=== PATIENT | male | born 1970 | race Caucasian/White ===

== ENCOUNTER → 2016-08-05 | Outpatient (CLI) | payer MEDICARE ==
[~2016-08-05] MED LIST: ALPR1TAB2 PO; ARIP2TAB PO; CLON0.2T PO; MORP60TA37 PO; OXYC-250 PO
--- NOTE | 2016-08-05 16:18 | CARD ---
APPROVED REPORT INDICATION Chest Pain RISK FACTORS Smoking PROCEDURE The patient underwent an Exercise Stress Test using the Logan Protocol. Blood pressure, heart rate, a nd EKG were monitored. An Echocardiogram was performed by robotic maintenance technician in four stages in quad fashion. At peak stress four se lected images were obtained and placed side by side with resting images for comparison. STRESS ECHO FINDINGS The resting Echocardiogram showed normal left ventricular contractility with an estimated Ejection Fr action of about 60 %. Normal augmentation of myocardial wall segments using a 16 segment model. Test Type: Exercise Stress Nurse/Tech: Elza Abdi RN/ Royce Mike RDCS, RVT, RDMS Test Indications: Chest pain Cardiac History and Allergies: NONE STATED Medications: NONE STATED Medical History: NO DIABETES, RECENTLY QUIT SMOKING Resting ECG: SR Resting Heart Rate: 85 bpm Resting Blood Pressure: 128/68mmHg Pretest Chest Pain: None Nurse/Tech Notes NO RESPIRATORY DISTRESS, NO CHEST DISCOMFORT AT THIS TIME. PT WAS ABLE TO WALK AND THEN END THE STUD Y IN A JOG. Consent: The procedure was explained to the patient in lay terms. Informed consent was witnessed. Zaid chang was entered into [employer]. History and Stress Test performed by JONEL POLANCO Stress Symptoms LEG FATIGUE. POST EXERCISE Reason for Termination: Reached target heart rate Target HR: 148 Max HR: 159 bpm Exercise duration: 9 min:sec, 3 Stage Exercise capacity: 10.0METs Max Blood Pressure: 161/65mmHg Blood Pressure response to exercise: Normal blood pressure response during stress. Heart Rate response to exercise: WNL Chest Pain: No. Arrhythmia: No. ST Change: No. INTERPRETATION Stress EKG Conclusion: Baseline EKG showed sinus rhythm. No ischemic changes at peak stress. No arr hythmias. <Conclusion> Treadmill exercise stress echocardiogram did not show any evidence of ischemia or infarct. Normal left ventricle systolic function with ejection fraction estimated at 60%. Patient had excellent activity tolerance. Low risk for cardiac events.
== END | disposition home or self-care (01) ==
LOC: ECHO 12:26
PROVIDERS: ATTEND Physician Assistant Medical
DX: R07.9 Chest pain, unspecified (principal)
CPT/HCPCS: 93017; 93350